=== PATIENT | female | born 1975 | race Native Hawaiian/Other Pacific Islander ===

== ENCOUNTER 2021-11-10 19:38 | Emergency (ER) | payer OTHER ==
[~2021-11-10] VITALS: Ht 167.6 cm; Wt 122.5 kg
[2021-11-11 00:21] VITALS: BP 140/74
[2021-11-11] MEDS ORDERED: FLUT1SPR5 ×2 (01:36→01:47)
[2021-11-11] MEDS ORDERED: PSEU1SYP6 PO ×2 (01:36→01:47)
[2021-11-11] MEDS ORDERED: LORA-622 PO ×2 (01:36→01:47)
== END 2021-11-11 01:54 | disposition home or self-care (01) ==
LOC: ER 19:41
DX: J06.9 Acute upper respiratory infection, unspecified (principal); R06.02 Shortness of breath; R53.83 Other fatigue; E66.9 Obesity, unspecified; Z68.41 Body mass index [BMI] 40.0-44.9, adult
CPT/HCPCS: 71046